=== PATIENT | female | born 1975 | race Caucasian/White ===

== ENCOUNTER 2017-01-18 12:50 | Emergency (ER) | payer OTHER ==
[~2017-01-18] VITALS: Ht 162.6 cm; Wt 65.3 kg
[~2017-01-18 12:50] MED LIST: ACET500T33 PO; HYDR-2758 PO
[2017-01-18 13:15] VITALS: BP 104/65
[2017-01-18] MEDS ORDERED: DEXAMETHASONE 0.1% OPHTH SOLUTION 5ML BOTTLE. AU ONE (14:30)
[2017-01-18] MEDS ORDERED: TETRACAINE 0.5% OPHTH SOLUTION 4ML BOTTLE. OU ONE (14:30)
[2017-01-18] MEDS ORDERED: CIPROFLOXACIN 0.3% OPHTH SOLUTION 5ML BOTTLE. AU ONE (14:45)
--- NOTE | 2017-01-18 16:20 | ED.ADGEN ---
Past Medical History Past Medical History: Other Additional Past Medical Histor: chronic back pain; right leg fracture Past Surgical History: Other Additional Past Surgical Histo: right leg fracture surgery Alcohol Use: Rarely Drug Use: None Adult General Chief Complaint Chief Complaint: EARACHE/EAR PAIN HPI HPI Patient is a 41 year old woman, history of chronic back pain, who presents to the emergency department with a complaint of bilateral ear pain. Patient states that she's had pain for the past several days, states that she has been washing her hair in the sink because her shower is broken, and that she has been getting water in her ears daily because she cannot bend over backwards due to her chronic back pain. Patient states that the pain is worse on the left side of the versus the right with some muffled hearing on that side. Denies any drainage from the ears, denies any fevers, chills, headache, nausea, vomiting, sore throat, rhinorrhea, chest pain, shortness breath, injuries or other complaints. She has not taken any medication prior to coming to the ED. Review of Systems Review of Systems Constitutional: Denies fever or chills. [] Eyes: Denies change in visual acuity. [] HENT: Denies nasal congestion or sore throat. [] Bilateral ear pain. Respiratory: Denies cough or shortness of breath. [] Cardiovascular: Denies chest pain or edema. [] GI: Denies abdominal pain, nausea, vomiting, bloody stools or diarrhea. [] : Denies dysuria. [] Musculoskeletal: Denies back pain or joint pain. [] Integument: Denies rash. [] Neurologic: Denies headache, focal weakness or sensory changes. [] Endocrine: Denies polyuria or polydipsia. [] Lymphatic: Denies swollen glands. [] Psychiatric: Denies depression or anxiety. [] Current Medications Current Medications Current Medications Medications (Trade) Dose Ordered Sig/Mary Start Time Stop Time Status Last Admin Dose Admin Ciprofloxacin (Ciloxan Ophth) 3 drop 1X ONCE 01/18/17 14:45 01/18/17 14:46 DC 01/18/17 14:49 3 DROP Dexamethasone (Maxidex) 3 drop 1X ONCE 01/18/17 14:30 01/18/17 14:35 DC 01/18/17 14:49 3 DROP Tetracaine HCl (Tetracaine) 3 drop 1X ONCE 01/18/17 14:30 01/18/17 14:35 DC 01/18/17 14:49 3 DROP Allergies Allergies Allergies Coded Allergies Type Severity Reaction Last Updated Verified Penicillins Allergy Intermediate 01/17/15 Yes fentanyl Allergy Intermediate 01/17/15 Yes epinephrine Adverse Reaction Severe INCREASES HEART RATE SEVERLY 01/17/15 Yes haloperidol Adverse Reaction Severe DYSTONIA 01/17/15 Yes acetaminophen Adverse Reaction Intermediate IRRITABLE 01/17/15 Yes erythromycin base Adverse Reaction Intermediate VOMIT 01/17/15 Yes prochlorperazine Adverse Reaction Intermediate ANXIETY 01/17/15 Yes propoxyphene Adverse Reaction Intermediate IRRITABLE 01/17/15 Yes Physical Exam Physical Exam Constitutional: Well developed, well nourished, no acute distress, non-toxic appearance. [] HENT: Normocephalic, atraumatic, bilateral external ears normal, patient with swelling of the external ear canal bilaterally, with mild erythema noted, worse on the left side greater than right, no discharge or drainage noted, no mastoid tenderness, patient does have pain with movement of the tragus, limited visualization of the tympanic membrane bilaterally, but no evidence of TM involvement from what I can observe, oropharynx moist, no oral exudates, nose normal. [] Eyes: PERRLA, EOMI, conjunctiva normal, no discharge. [] Neck: Normal range of motion, no tenderness, supple, no stridor. [] Cardiovascular:Heart rate regular rhythm, no murmur, S1, S2, no rubs or gallops. [] Lungs & Thorax: Bilateral breath sounds clear to auscultation [] Abdomen: Bowel sounds normal, soft, no tenderness, no masses, no pulsatile masses. [] Skin: Warm, dry, no erythema, no rash. [] Back: No tenderness, no CVA tenderness. [] Extremities: No tenderness, no cyanosis, no clubbing, ROM intact, no edema. [] Neurologic: Alert and oriented X 3, normal motor function, normal sensory function, no focal deficits noted. [] Psychologic: Affect normal, judgement normal, mood normal. [] Current Patient Data Vital Signs Vital Signs Date Time Temp Pulse Resp B/P (MAP) Pulse Ox O2 Delivery O2 Flow Rate FiO2 01/18/17 13:15 98.3 67 18 98 Room Air 98.3 EKG EKG Not indicated.[] Radiology/Procedures Radiology/Procedures Not indicated.[] Course & Med Decision Making Course & Med Decision Making Pertinent Labs and Imaging studies reviewed. (See chart for details) Patient's examination is consistent with a bilateral otitis externa, no evidence of otitis media, no evidence of injury or perforation. I did discuss with patient that she will need to avoid getting water in ears as this is the source of this issue, patient states that she is working and having her shower fixed today by her father. Received placement of ear kadi in the emergency department, with infusion of ciprofloxacin, hydrocortisone, and tetracaine, instructed to use all 3 of these medications strictly as directed, to apply 3 drops in each ear twice daily and leave the ear kadi in place for the first 24 hours. After that time patient is instructed to continue instilling the drops for the additional 6 days. Patient tolerated placement without issue. Patient was given clear and detailed return instructions and precautions, discharged home with medications from the ED to be used as directed, and to return to the ED for new or concerning symptoms as discussed. Dragon Disclaimer Dragon Disclaimer This electronic medical record was generated, in whole or in part, using a voice recognition dictation system. Departure Impression: Primary Impression: Otitis externa of both ears Disposition: ADMITTED INPATIENT Condition: IMPROVED GARETH LI DO Jan 18, 2017 16:20
== END 2017-01-18 15:02 | disposition home or self-care (01) ==
LOC: ER 12:50
DX: H60.93 Unspecified otitis externa, bilateral (principal); G89.29 Other chronic pain; M54.9 Dorsalgia, unspecified; Z88.0 Allergy status to penicillin; Z88.6 Allergy status to analgesic agent; Z88.4 Allergy status to anesthetic agent; Z88.1 Allergy status to other antibiotic agents; Z88.8 Allergy status to other drugs, medicaments and biological substances
CPT/HCPCS: 99285-25

== ENCOUNTER 2017-10-29 17:49 | Emergency (ER) | payer OTHER | END 2017-10-29 19:29 | disposition home or self-care (01) | LOC: ER 19:29 | DX: J02.9 Acute pharyngitis, unspecified (principal); R09.89 Other specified symptoms and signs involving the circulatory and respiratory systems; G89.29 Other chronic pain; Z88.0 Allergy status to penicillin; Z88.4 Allergy status to anesthetic agent; Z88.6 Allergy status to analgesic agent; Z88.1 Allergy status to other antibiotic agents; Z88.8 Allergy status to other drugs, medicaments and biological substances | CPT/HCPCS: 99281 ==

== ENCOUNTER 2018-06-22 07:14 | Emergency (ER) | payer SELFPAY ==
[~2018-06-22] VITALS: Ht 162.6 cm; Wt 68.0 kg
[~2018-06-22 07:14] MED LIST changes: -HYDR-2758 PO; +HYDR-2761 PO
--- NOTE | 2018-06-22 07:59 | PHYS DOC ---
Past Medical History Past Medical History: Other Additional Past Medical Histor: chronic back pain; right leg fracture Past Surgical History: Other Additional Past Surgical Histo: right leg fracture surgery Alcohol Use: Rarely Drug Use: None Adult General Chief Complaint Chief Complaint: BACK PAIN OR INJURY [facility] HPI Patient is a 42-year-old female who presents with complaint of severe midthoracic back pain that radiates around to her chest. Patient states that her had tried to pop her back at home last night and since she has had a lot of pain in her back. She states that this morning the pain is really severe in her chest as well. Patient states that she is having a hard time breathing due to the pain. She denies any loss of bowel or bladder control. She describes pain as being sharp and stabbing in nature. She states that nothing is improving her pain. Review of Systems Review of Systems Constitutional: Denies fever or chills [] Respiratory: Denies cough or shortness of breath [] Cardiovascular: No additional information not addressed in HPI [] GI: Denies abdominal pain, nausea, vomiting or diarrhea [] Musculoskeletal: Complains of midthoracic back pain [] Integument: Denies rash or skin lesions [] Neurologic: Denies headache, focal weakness or sensory changes [] All other systems were reviewed and found to be within normal limits, except as documented in this note. Current Medications Current Medications Current Medications Medications (Trade) Dose Ordered Sig/[facility] Start Time Stop Time Status Last Admin Dose Admin Butorphanol Tartrate (Stadol) 2 mg 1X ONCE 06/22/18 08:45 06/22/18 08:46 DC Ketorolac Tromethamine (Toradol Im) 60 mg 1X ONCE 06/22/18 08:45 06/22/18 08:46 DC Allergies Allergies Allergies Coded Allergies Type Severity Reaction Last Updated Verified Penicillins Allergy Intermediate 01/17/15 Yes fentanyl Allergy Intermediate 01/17/15 Yes epinephrine Adverse Reaction Severe INCREASES HEART RATE SEVERLY 01/17/15 Yes haloperidol Adverse Reaction Severe DYSTONIA 01/17/15 Yes acetaminophen Adverse Reaction Intermediate IRRITABLE 01/17/15 Yes erythromycin base Adverse Reaction Intermediate VOMIT 01/17/15 Yes prochlorperazine Adverse Reaction Intermediate ANXIETY 01/17/15 Yes propoxyphene Adverse Reaction Intermediate IRRITABLE 01/17/15 Yes Physical Exam Physical Exam Constitutional: Well developed, well nourished, no acute distress, non-toxic appearance. [] HENT: Normocephalic, atraumatic, bilateral external ears normal, oropharynx moist, no oral exudates, nose normal. [] Eyes: PERRLA, EOMI, conjunctiva normal, no discharge. [] Neck: Normal range of motion, no tenderness, supple, no stridor. [] Cardiovascular: Regular rate and rhythm[] Lungs & Thorax: Bilateral breath sounds clear to auscultation [] Abdomen: Bowel sounds normal, soft, no tenderness. [] Skin: Warm, dry, no erythema, no rash. [] Back: Patient reports spinous point tenderness around T6-T10. [] Extremities: No tenderness, no cyanosis, no clubbing, ROM intact, no edema. [] Neurologic: Alert and oriented X 3, no focal deficits noted. [] Current Patient Data Vital Signs Vital Signs Date Time Temp Pulse Resp B/P (MAP) Pulse Ox O2 Delivery O2 Flow Rate FiO2 06/22/18 07:23 98.1 61 16 109/73 (85) 100 Room Air 98.1 Lab Values Laboratory Tests Test 06/22/18 07:39 06/22/18 07:55 Urine Collection Type Unknown Urine Color Yellow Urine Clarity Clear Urine pH 6.0 Urine Specific [place] 1.020 Urine Protein Negative mg/dL (NEG-TRACE) Urine Glucose (UA) Negative mg/dL (NEG) Urine Ketones (Stick) Negative mg/dL (NEG) Urine Blood Moderate (NEG) Urine Nitrite Negative (NEG) Urine Bilirubin Negative (NEG) Urine Urobilinogen Dipstick 0.2 mg/dL (0.2 mg/dL) Urine Leukocyte Esterase Trace (NEG) Urine RBC 20-40 /HPF (0-2) Urine WBC 1-4 /HPF (0-4) Urine Squamous Epithelial Cells Many /LPF Urine Bacteria Few /HPF (0-FEW) Urine Mucus Marked /LPF POC Urine HCG, Qualitative Hcg negative (Negative) EKG EKG [] Radiology/Procedures Radiology/Procedures [] Impressions: CT study of the thoracic spine without contrast Clinical indications: Back pain. TECHNIQUE: Noncontrast helical CT scanning of the thoracic spine was performed. Multiplanar 2-D reconstructions were generated. PQRS compliance Statement One or more of the following individualized dose reduction techniques were utilized for this study: 1. Automated exposure control 2. Adjustment of the mA and/or kV according to patient size 3. Use of iterative reconstruction technique COMPARISON: None available. FINDINGS: No compression fracture or discitis or lytic process or anterolisthesis is seen. No focal disc protrusion or spinal canal stenosis or neural foraminal narrowing is seen. Incidental note is made of bilateral posterior dependent groundglass radiopacities of the lung mcleod most likely due to dependent atelectasis. IMPRESSION: No significant abnormality of the thoracic spine. Electronically signed by: Catalino Polanco MD (06/22/2018 10:44 AM) Course & Med Decision Making Course & Med Decision Making Pertinent Labs and Imaging studies reviewed. (See chart for details) [] Dragon Disclaimer Dragon Disclaimer This electronic medical record was generated, in whole or in part, using a voice recognition dictation system. Departure Departure Impression: Primary Impression: Thoracic myofascial strain Disposition: 01 HOME, SELF-CARE Condition: STABLE Referrals: CHARLES BRYANT MD (PCP) Patient Instructions: Thoracic Strain Scripts Orphenadrine Citrate (ORPHENADRINE CITRATE) 100 Mg Tablet.er 1 TAB PO BID PRN for MUSCLE SPASMS, #20 TAB Prov: GLORIA MCKEON Jr. DO 06/22/18 Hydrocodone/Apap 5-325 (NORCO 5-325 TABLET) 1 Each Tablet 1-2 EACH PO PRN Q6HRS PRN for PAIN, #15 as needed for pain Prov: GLORIA MCKEON Jr. DO 06/22/18 Problem Qualifiers Primary Impression: Thoracic myofascial strain Encounter type: initial encounter Qualified Codes: S29.019A - Strain of muscle and tendon of unspecified wall of thorax, initial encounter GLORAI MCKEON Jr. DO Jun 22, 2018 07:59
[2018-06-22 08:05] LABS: BILIRUBIN,URINE NEGATIVE (NEG); CLARITY,URINE CLEAR; COLOR,URINE YELLOW; NITRITE,URINE NEGATIVE (NEG); PROTEIN,URINE NEGATIVE (NEG-TRACE); UROBILINOGEN,URINE 0.2 mg/dL (0.2 mg/dL)
[2018-06-22 08:11] LABS: SQUAMOUS EPITHELIAL CELL,UR MANY /LPF
[2018-06-22 08:12] LABS: BACTERIA,URINE FEW /HPF (0-FEW); RBC,URINE 20-40 /HPF (0-2)
[2018-06-22] MEDS ORDERED: BUTORPHANOL 2 MG/ML VIAL. IM ONE (08:45)
[2018-06-22] MEDS ORDERED: KETOROLAC 60 MG/2 ML VIAL. IM ONE (08:45)
--- NOTE | 2018-06-22 10:49 | RAD ---
CT study of the thoracic spine without contrast Clinical indications: Back pain. TECHNIQUE: Noncontrast helical CT scanning of the thoracic spine was performed. Multiplanar 2-D reconstructions were generated. PQRS compliance Statement One or more of the following individualized dose reduction techniques were utilized for this study: 1. Automated exposure control 2. Adjustment of the mA and/or kV according to patient size 3. Use of iterative reconstruction technique COMPARISON: None available. FINDINGS: No compression fracture or discitis or lytic process or anterolisthesis is seen. No focal disc protrusion or spinal canal stenosis or neural foraminal narrowing is seen. Incidental note is made of bilateral posterior dependent groundglass radiopacities of the lung mcleod most likely due to dependent atelectasis. IMPRESSION: No significant abnormality of the thoracic spine. Electronically signed by: Catalino Polanco MD (06/22/2018 10:44 AM) [id number]
[2018-06-22] MEDS ORDERED: ORPH100T PO (11:00)
[2018-06-22] MEDS ORDERED: HYDR-3164 PO (11:00)
[2018-06-22 11:26] VITALS: BP 122/77
== END 2018-06-22 11:26 | disposition home or self-care (01) ==
LOC: ER 07:14
DX: S29.012A Strain of muscle and tendon of back wall of thorax, initial encounter (principal); G89.29 Other chronic pain; Z88.8 Allergy status to other drugs, medicaments and biological substances; Z88.1 Allergy status to other antibiotic agents; Z88.6 Allergy status to analgesic agent; Z88.0 Allergy status to penicillin; X58.XXXA Exposure to other specified factors, initial encounter; Y93.89 Activity, other specified; Y92.89 Other specified places as the place of occurrence of the external cause; Y99.8 Other external cause status
CPT/HCPCS: 72128; 81001; 81025; 87086; 99284-25

== ENCOUNTER 2020-02-18 18:24 | Emergency (ER) | payer BC ==
[~2020-02-18] VITALS: Ht 162.6 cm; Wt 81.0 kg
[~2020-02-18 18:24] MED LIST changes: +HYDR-3164 PO; +ORPH100T PO
[2020-02-18 18:46] VITALS: BP 127/81
--- NOTE | 2020-02-18 18:59 | PHYS DOC ---
Past Medical History Past Medical History: Other Additional Past Medical Histor: chronic back pain; right leg fracture Past Surgical History: Other Additional Past Surgical Histo: right leg fracture surgery Smoking Status: Current Every Day Smoker Alcohol Use: Rarely Drug Use: None General Adult EDM: Chief Complaint: FOOT INJURY PAIN HPI: HPI: Patient is a 44 year old F who presents with right foot pain for the past 2 days after hitting her lateral foot on a door jam. She states that she was unable to walk immediately after the injury and ever since due to pain. She describes the pain as throbbing and rates it 910. She reports taking ibuprofen and hydrocodone at home without much relief. She also complains of associated numbness in tingling in the R foot since the injury. Pt also reports that she cannot move her R 2-5th toe. Review of Systems: Review of Systems: Constitutional: Denies fever or chills Eyes: Denies redness or eye pain HENT: Denies nasal congestion or sore throat Respiratory: Denies cough or shortness of breath Cardiovascular: Denies chest pain or palpitations GI: Denies abdominal pain, nausea, or vomiting : Denies dysuria or hematuria Musculoskeletal: Denies back pain; reports right foot pain and swelling Integument: Denies rash or skin lesions; reports right foot ecchymosis and swelling Neurologic: Denies headache or focal weakness Complete systems were reviewed and found to be within normal limits, except as documented in this note. Allergies: Allergies: Allergies Coded Allergies Type Severity Reaction Last Updated Verified Penicillins Allergy Intermediate 01/17/15 Yes fentanyl Allergy Intermediate 01/17/15 Yes epinephrine Adverse Reaction Severe INCREASES HEART RATE SEVERLY 01/17/15 Yes haloperidol Adverse Reaction Severe DYSTONIA 01/17/15 Yes acetaminophen Adverse Reaction Intermediate IRRITABLE 01/17/15 Yes erythromycin base Adverse Reaction Intermediate VOMIT 01/17/15 Yes prochlorperazine Adverse Reaction Intermediate ANXIETY 01/17/15 Yes propoxyphene Adverse Reaction Intermediate IRRITABLE 01/17/15 Yes Physical Exam: PE: Constitutional: Well developed, well nourished HENT: Normocephalic, atraumatic Eyes: Conjunctiva normal, no discharge Neck: Normal range of motion, supple Lungs & Thorax: No respiratory distress, equal chest rise and fall Abdomen: Soft, no tenderness Skin: Warm, dry, no rash Back: No tenderness, no CVA tenderness Extremities: Ecchymosis noted to right 2nd-4th distal metatarsal. LE pulses +2/2 b/l. Cap refill <2 sec b/l. ROM of R ankle intact. Unable to assess ROM of 2nd- 5th toes due to reported pain by patient Neurologic: Alert and oriented X 3, no focal deficits noted Psychologic: Affect normal, judgment normal Current Patient Data: Vital Signs: Vital Signs Date Time Temp Pulse Resp B/P (MAP) Pulse Ox O2 Delivery O2 Flow Rate FiO2 02/18/20 18:46 98.6 88 18 127/81 (96) 96 Room Air 98.6 EKG: EKG: [] Radiology/Procedures: Radiology/Procedures: PROCEDURE: FOOT RIGHT 3V FOOT RIGHT 3V History: Pain in distal fourth and fifth metatarsals Comparison: None. Findings: 3 views of the right foot are submitted. No acute fracture, dislocation, or aggressive bone destruction is identified. There is intramedullary aimee of the visualized distal tibia, not fully included. Impression: 1. No acute osseous abnormality is identified by radiographs. Electronically signed by: Silverio Marcus MD (02/18/2020 7:38 PM) [facility] Course & Med Decision Making: Course & Med Decision Making Pertinent Imaging studies reviewed. (See chart for details) [] Siddharth Disclaimer: Siddharth Disclaimer: This electronic medical record was generated, in whole or in part, using a voice recognition dictation system. Splinting Splinting : Location: Right foot Pre-Made Type: RAFAEL bandage and Post-op shoe Pre-Proc Neuro Vasc Exam: normal Post-Proc Neuro Vasc Exam: normal, unchanged from pre-exam Departure Departure Impression: Primary Impression: Toe injury Qualified Codes: S99.921A - Unspecified injury of right foot, initial encounter Disposition: 01 DC HOME SELF CARE/HOMELESS Condition: STABLE Referrals: CHARLES BRYANT MD (PCP) RINA WALLIS DPM Patient Instructions: Crutch Use, [id number], Toe Fracture, [id number] Additional Instructions: Please continue use of crutches and post op shoe. Follow with your doctor and/or [facility]ber S[employer] Operator for re-evaluation. Scripts Hydrocodone/Apap 7.5-325 (NORCO 7.5-325 TABLET) 1 Each Tablet 1 TAB PO PRN Q6HRS PRN for PAIN, #10 TAB 0 Refills Prov: CAMILA LIPSCOMB DO 02/18/20 CAMILA LIPSCOMB DO Feb 18, 2020 18:59
--- NOTE | 2020-02-18 19:41 | RAD ---
FOOT RIGHT 3V History: Pain in distal fourth and fifth metatarsals Comparison: None. Findings: 3 views of the right foot are submitted. No acute fracture, dislocation, or aggressive bone destruction is identified. There is intramedullary aimee of the visualized distal tibia, not fully included. Impression: 1. No acute osseous abnormality is identified by radiographs. Electronically signed by: Silverio Marcus MD (02/18/2020 7:38 PM) [facility]
[2020-02-18] MEDS ORDERED: HYDR-3165 PO (20:02)
== END 2020-02-18 20:26 | disposition home or self-care (01) ==
LOC: ER 18:24
DX: S90.121A Contusion of right lesser toe(s) without damage to nail, initial encounter (principal); M79.671 Pain in right foot; R20.2 Paresthesia of skin; G89.29 Other chronic pain; F17.200 Nicotine dependence, unspecified, uncomplicated; Z98.890 Other specified postprocedural states; Z88.0 Allergy status to penicillin; Z88.1 Allergy status to other antibiotic agents; Z88.8 Allergy status to other drugs, medicaments and biological substances; Z88.6 Allergy status to analgesic agent; W22.8XXA Striking against or struck by other objects, initial encounter; Y93.89 Activity, other specified; Y92.89 Other specified places as the place of occurrence of the external cause; Y99.8 Other external cause status
CPT/HCPCS: 73630; 99283